=== PATIENT | male | born 1985 | race Caucasian/White ===

== ENCOUNTER 2021-01-31 12:20 | Emergency (ER) | payer OTHER, SELFPAY ==
[2021-01-31 12:36] VITALS: BP 132/64; PULSE 83; RESP 18; TEMP 37.5; O2SAT 98; BMI 22.2
== END 2021-01-31 13:00 | disposition left against medical advice (07) ==
PROVIDERS: Emergency Provider Emergency Medicine
DX: R05 Cough (principal); R50.9 Fever, unspecified; R06.02 Shortness of breath; Z20.822 Contact with and (suspected) exposure to COVID-19
CPT/HCPCS: 99282

== ENCOUNTER 2021-03-08 07:25 | Emergency (ER) | payer OTHER, SELFPAY ==
--- NOTE | 2021-03-08 | ECG_ITS ---
Test Reason : CHEST PAIN Blood Pressure : / mmHG Vent. Rate : 069 BPM Atrial Rate : 069 BPM P-R Int : 104 ms QRS Dur : 094 ms QT Int : 386 ms P-R-T Axes : 090 063 039 degrees QTc Int : 413 ms Normal sinus rhythm Normal EKG No previous ECGs available Referred By: Generic ED Physician Electronically Signed By:PIPO ZUNIGA
--- NOTE | ~2021-03-08 | XR_ITS ---
EXAMINATION: XR CHEST CLINICAL INFORMATION: Cough COMPARISON: Previous chest x-ray April 2018 TECHNIQUE: Frontal view of the chest was obtained. FINDINGS: No significant abnormality is noted involving the heart, lungs, mediastinum, bony thorax or soft tissues. XR/XR chest 1V IMPRESSION: Unremarkable examination.
[2021-03-08 07:57] VITALS: BP 110/80; PULSE 70; RESP 18; TEMP 37.1; O2SAT 98; BMI 24.2
--- NOTE | 2021-03-08 10:23 | ED.GENADULT ---
HPI - General Adult General Chief complaint: General Medical Stated complaint: chest pain, weakness, fever Time Seen by Provider: 03/08/21 09:19 Source: patient Mode of arrival: ambulatory History of Present Illness HPI narrative: 35-year-old male with no significant past medical history presenting to the ED complaining of fever T-max 102?, chills, dry cough, chest wall pain and SOB when coughing, and diarrhea x 2-3 days. Admits to similar symptoms in the past/yearly, usually has pneumonia. Denies cigarette smoking, recent travel, LE edema or calf pain. Denies exposure to COVID-19/sick contacts, abdominal pain, nausea/vomiting Related Data Previous Rx's Medication Instructions Recorded albuterol sulfate 5 mg INHALATION Q4H PRN #30 ea 03/08/21 benzonatate [Tessalon Perles] 100 mg PO TID PRN #14 cap 03/08/21 Allergies Allergy/AdvReac Type Severity Reaction Status Date / Time Penicillins [PENICILLINS] Allergy Intermediate SWELLING Unverified 07/23/20 17:04 penicillin V Allergy Unknown anaphylaxis Verified 11/23/18 00:00 Review of Systems Review of Systems: Constitutional: + Fever, + Chills, No Night Sweats, No Fatigue, No Malaise ENT/Mouth: No Nasal Congestion, No Sinus Pain, No sore throat, No Rhinorrhea Eyes: No Eye Pain, No Vision Changes Cardiovascular: + Chest Pain when coughing, + SOB when coughing, No Dyspnea on Exertion, No Orthopnea, No Edema Respiratory: + Cough, No Sputum, No Wheezing, No Smoke Exposure, No Dyspnea Gastrointestinal: No Nausea, No Vomiting, + Diarrhea, No Constipation, No Abdominal pain Genitourinary: No Dysuria, No Flank Pain, No Urinary Flow Changes, No Hesitancy Musculoskeletal: No joint pain, No Myalgias, No Joint Swelling Skin: No Skin Lesions, No rash Neuro: No Weakness, No Dizziness, No Headache Yes all other systems are reviewed and are negative [facility] Past Medical History Attestation statement: The following information was validated with the patient. Social History Social History Advance Directives: No Advance Directives Information Provided: No Physical Exam Vital Signs: Vital Signs: Last Vital Signs Temp 98.8 F 03/08/21 07:57 Pulse 70 03/08/21 07:57 Resp 18 03/08/21 07:57 BP 110/80 03/08/21 07:57 Pulse Ox 98 03/08/21 07:57 Body Mass Index 24.2 Const: General: cooperative, healthy appearing, comfortable, no acute distress, well developed, alert and awake Orientation/consciousness: patient oriented x3 Limitations: no limitations HENMT: Head: Yes normal to inspection Ears: hearing grossly normal bilaterally General nose exam: Normal external nose present Face and sinus: Yes normal facial exam Eyes: General: appearance normal, both eyes and all related structures EOM: EOMs intact bilaterally Neck: Neck: Yes normal visual inspection and Yes no meningeal signs Chest: Chest palpation & inspection: normal inspection of the chest Resp: Effort & Inspection: normal respiratory effort, no grunting and not labored Auscultation: clear to auscultation bilaterally, no rales, no rhonchi and no wheezes Cardio: Rate: regular rate Heart sounds: S1 normal heart sound present and S2 normal heart sound present GI: Inspection: Yes normal to inspection Skin: Rashes: no rashes Wounds: no wounds Neuro: General: patient oriented x3 and no meningeal signs Gait exam (Neuro): Normal gait present Extrem: General: Yes normal to inspection, Yes no pedal edema and Yes no calf tenderness Course Course Course Narrative: XR chest 1V IMPRESSION: Unremarkable examination COVID-19 positive >> results discussed with patient including worrisome signs and strict return precautions Medical Decision Making [facility] Narrative Medical decision making narrative: 35-year-old male with no significant past medical history presenting to the ED complaining of fever T-max 102?, chills, dry cough, chest wall pain and SOB when coughing, and diarrhea x 2-3 days. On exam VSS, NAD/well-appearing, lungs CTA, no LE edema or calf tenderness. Concern for COVID-19/viral syndrome. Rule out pneumonia. Unlikely ACS/PE or bacterial illness PERC rule negative Plan: CXR, COVID-19 testing Lab Data Labs: Lab Results 03/08/21 Range/Units 09:49 Coronavirus (PCR) POSITIVE A (Negative) Influenza Type A (PCR) NEGATIVE (Negative) Influenza Type B (PCR) NEGATIVE (Negative) RSV RNA Qual (PCR) NEGATIVE (Negative) Discharge Plan Discharge Clinical Impression: COVID-19 Patient Disposition: Home, Self-Care Instructions: COVID-19 (Coronavirus Disease 2019) (ED) Additional Instructions: Your chest x-ray was unremarkable today in the ED. Tessalon Perles for cough, take as needed. Albuterol inhaler is for wheezing/shortness of breath, use as needed Your COVID-19 results pending at this time, I will call you later with results. In the meantime self isolate and until you know the results. Youre COVID-19 positive Please continue to follow cold instructions and wash your hands frequently. You may take Tylenol as directed on the bottle for pain or fever. CDC Guidelines for home isolation: - Stay away from others - WEAR A MASK if you are sick AND STAY HOME - Cover your mouth and nose with a tissue when you cough or sneeze. Dispose of tissues in a lined trash can and wash your hands immediately with soap and water for at least 20 seconds. If soap and water are not available, clean hands with alcohol-based hand dietitian assistant that contains at least 60% alcohol. - Clean your hands often with soap and water for at least 20 seconds - Avoid touching your eyes, nose and mouth with unwashed hands - Do not share dishes, drinking glasses, cups, eating utensils, towels, or bedding with other people in your home. After using these items, wash them thoroughly with soap and water or put in the american sign language interpreter. - Clean high-touch surfaces in your isolation area ( sick room and bathroom) every day; let a caregiver clean and disinfect high-touch surfaces in other areas of the home. Clean the area or item with soap and water or another detergent if it is dirty. Then, use a household disinfectant. - Limit contact with pets and animals: If you must care for a pet, wash your hands before and after interacting with them) Prescriptions: New benzonatate [Tessalon Perles] 100 mg capsule 100 mg PO TID PRN (Reason: cough) Qty: 14 RF: 0 albuterol sulfate 2.5 mg/0.5 mL solution for nebulization 5 mg inhalation Q4H PRN (Reason: shortness of breath or wheezing) Qty: 30 RF: 0 Referrals: Physician,Unknown [Primary Care Provider] - 2 days Stand Alone Forms: Work/School Release
[2021-03-08 10:50] LABS: Influenza A PCR NEGATIVE (Negative); Influenza B PCR NEGATIVE (Negative); Resp Syncy Virus RNA Qual PCR NEGATIVE (Negative); SARS COV2 PCR INHOUSE POSITIVE (Negative)
== END 2021-03-08 11:37 | disposition home or self-care (01) ==
PROVIDERS: Physician Assistant; Emergency Provider Emergency Medicine
DX: U07.1 COVID-19 (principal); R07.9 Chest pain, unspecified; R50.9 Fever, unspecified
CPT/HCPCS: 0241U; 36415; 71045; 93005; 99283

== ENCOUNTER 2021-12-09 18:28 | Emergency (ER) | payer OTHER, SELFPAY ==
--- NOTE | ~2021-12-09 | XR_ITS ---
EXAMINATION: XR SOFT TISSUE NECK CLINICAL INDICATION: Foreign body sensation in the neck. COMPARISON: Chest radiograph dated from 03/08/2021. TECHNIQUE: 2 views of the soft tissue neck were obtained. FINDINGS: Soft tissue films of the neck demonstrate a normal larynx, pharynx and upper trachea. No soft tissue swelling or opaque foreign body is demonstrated. No acute cervical fractures or malalignment. Visualized lung apices are clear. XR/XR soft tissue neck IMPRESSION: No radiopaque foreign bodies.
[2021-12-09 18:32] VITALS: BP 132/75; PULSE 105; RESP 16; TEMP 37.2; O2SAT 99; BMI 24.2
--- NOTE | 2021-12-09 19:59 | ED_ITS ---
HPI - Skin/Abscess/Foreign Bdy General Chief complaint: Skin/Abscess/Foreign Body Stated complaint: Food stuck in throat? nothing can stay down Time Seen by Provider: 12/09/21 18:37 Source: patient Mode of arrival: EMS Limitations: no limitations History of Present Illness HPI narrative: This is a 36-year-old male past medical history significant for GERD and ?narrow esophagus ?presents to the emergency department with complaints of feeling like something was stuck in his throat around 3:00 p.m. patient tells me he was eating rice, beans and meat and he felt like it got stuck in his throat, he was unable to eat or drink anything for a while until about 2 hours ago, he tells me that while in our waiting room patient vomited, any puked up some of the food, causing immediate relief, patient tells me at this time he does not feel like there is anything in his throat. He tells me that this is happened to him in the past he is followed by GI, he takes omeprazole daily for his GERD. He denies chest pain, shortness of breath, nausea, vomiting, fevers, chills, abdominal pain. Patient tells me he is feeling completely better at this time. MD complaint: foreign body (Earlier patient was experiencing a foreign body sensation in his throat.) Onset (ago): hour(s) (5) Location: neck Severity: moderate Quality: foreign body sensation Pain Consistency: now resolved Relieving factors: none Context: none Associated symptoms: denies other symptoms Treatments prior to arrival: none Related Data Previous Rx's Medication Instructions Recorded albuterol sulfate 2.5 mg/0.5 mL 5 mg INHALATION Q4H PRN #30 ea 03/08/21 solution for nebulization benzonatate 100 mg capsule 100 mg PO TID PRN #14 cap 03/08/21 (Tessalon Perles) albuterol sulfate 90 mcg/actuation 2 puff INHALATION Q4-6H PRN #6.7 03/09/21 g aerosol inhaler Allergies Allergy/AdvReac Type Severity Reaction Status Date / Time Penicillins Allergy Intermediate SWELLING Unverified 07/23/20 17:04 [PENICILLINS] penicillin V Allergy Unknown anaphylaxis Verified 11/23/18 00:00 Review of Systems Verdana 4l Review of Systems: Verdana 4d Verdana 4d Constitutional : No Weight loss, No Fever, No Chills, No Fatigue, No Malaise ENT/Mouth : No sore throat, No Rhinorrhea Eyes: No Eye Pain, No Swelling, No Redness Cardiovascular : No Chest Pain, No SOB, No Dyspnea on Exertion, No OrthopneaOrthopnea, No Edema, No Palpitations Respiratory : No Cough, No Sputum, No Wheezing Gastrointestinal : No Nausea, No Vomiting, No Diarrhea, No Constipation, No abdominal Pain, No Hematochezia, No Melena Genitourinary : No Dysuria, No Urinary Frequency, No Hematuria, Musculoskeletal : No joint pain, No Myalgias, No Joint Swelling Skin : No Skin Lesions, No rash Neuro : No Weakness, No Numbness, No Dizziness, No Headache All other systems reviewed and are negative Yes all other systems are reviewed and are negative [facility] Past Medical History Attestation statement: The following information was validated with the patient. Source: old records reviewed and nursing notes reviewed Social History Social History Advance Directives: No Advance Directives Information Provided: Yes Physical Exam Verdana 4l Vital Signs: Verdana 4d Verdana 4d Vital Signs: Verdana 4d Verdana 4Bd Last Vital Signs Verdana 4d Replenishment Associate New 4d Replenishment Associate New 4d Temp 98.2 F 12/09/21 20:10 Replenishment Associate New 4d Pulse 108 H 12/09/21 20:10 Replenishment Associate New 4d Resp 16 12/09/21 20:10 BP 106/67 12/09/21 20:10 Pulse Ox 96 12/09/21 20:10 BMI result Body Mass Index 24.2 VSS Appearance: Alert.? Oriented X3.? No acute distress.? Patient speaking in full sentences, controlling secretions well, no acute distress. Head: Normocephalic, atraumatic, no step-offs or deformities Eyes: Pupils equal, round and reactive to light.? ENT: Pharynx normal.? No foreign body visualized in the posterior pharynx. Neck: Normal inspection.? Neck supple.? CVS: Normal heart rate and rhythm.? Pulses normal.? Respiratory: No respiratory distress.? Breath sounds normal.? Abdomen: Soft and nontender.? Skin: Skin warm and dry.? Normal skin color.? Normal skin turgor.? Extremities: No lower extremity edema.? No calf ttp. 5/5 strength to bilateral upper and lower extremities Back: No midline tenderness, no C-spine tenderness, full range of motion, no CVA tenderness bilaterally Neuro: Oriented X 3.? No motor deficit.? No sensory deficit. Course Reevaluation(s) Reevaluation #1: Patient's x-ray of neck and soft tissues normal. Patient's vital signs stable. Patient able to speak in full sentences, controlling secretions well. Patient no longer has foreign body sensation in throat. At this time I feel comfortable with discharge with GI follow-up in PCP follow-up. I have advised patient to return with new or worsening symptoms. Comfortable with plan Time: 20:28 MDM - Skin/Abscess/Foreign Bdy MDM Narrative Medical decision making narrative: 1999 36-year-old male presenting to the emergency department with a foreign body sensation in throat after eating rice, beans and me, at this time this sensation has resolved, patient told me he vomited multiple times in the waiting room. Patient tells me his GI doctor told him he has a narrow esophagus, currently on daily PPI. Physical examination benign Plan- CT neck and soft tissues. Medical Records Attestation: I reviewed the patient's medical records. Lab Data Attestation: I reviewed the patient's lab results. Imaging Data Xray neck: Attestation: I personally reviewed and interpreted this imaging study as follows: Radiologist's impression: FINDINGS: Soft tissue films of the neck demonstrate a normal larynx, pharynx and upper trachea. No soft tissue swelling or opaque foreign body is demonstrated. No acute cervical fractures or malalignment. Visualized lung apices are clear. XR/XR soft tissue neck IMPRESSION: No radiopaque foreign bodies. Critical Care Time Critical Care Time Critical Care Time: No Discharge Plan Discharge Clinical Impression: Foreign body sensation in throat Patient Disposition: Home, Self-Care Additional Instructions: Take your medications as prescribed. If you were prescribed antibiotics today, it is important that you take your medication to their entirety, do not skip any doses, do not finish them early. Follow-up with your primary care provider this week. Please follow up with Gastroenterology this week. Return to the emergency department with new or worsening symptoms. In case of emergency call 911 Prescriptions: No Action benzonatate [Tessalon Perles] 100 mg capsule 100 mg PO TID PRN (Reason: cough) Qty: 14 0RF albuterol sulfate 2.5 mg/0.5 mL solution for nebulization 5 mg inhalation Q4H PRN (Reason: shortness of breath or wheezing) Qty: 30 0RF albuterol sulfate 90 mcg/actuation HFA aerosol inhaler 2 puff inhalation Q4-6H PRN (Reason: shortness of breath or wheezing) Qty: 6 .7 0RF Referrals: lBaine Diehl MD [Physician] - 2 days Physician,Waleska J [Primary Care Provider] - 2 days (Follow-up with your primary care provider and Gastroenterology.) Stand Alone Forms: Work/School Release
[2021-12-09 20:10] VITALS: BP 106/67; PULSE 108; RESP 16; TEMP 36.8; O2SAT 96
--- NOTE | 2021-12-09 20:38 | PC.NURSE ---
pt a&ox3, vss, patient denies any difficulty breathing or swallowing, no pain.
== END 2021-12-09 20:43 | disposition home or self-care (01) ==
PROVIDERS: Emergency Provider Emergency Medicine Emergency Medical Services
DX: R09.89 Other specified symptoms and signs involving the circulatory and respiratory systems (principal); K21.9 Gastro-esophageal reflux disease without esophagitis
CPT/HCPCS: 70360; 99283; 99284

== ENCOUNTER 2022-01-15 08:31 | Emergency (ER) | payer OTHER, SELFPAY ==
[2022-01-15 08:56] VITALS: BP 122/77; PULSE 88; RESP 16; TEMP 36.9; O2SAT 99; BMI 23.5
[2022-01-15 09:38] LABS: COVID-19 Test Negative (Negative); IDNOW Serial# 16C4AD1C
[2022-01-15 09:39] LABS: Influenza A Positive (Negative); Influenza B2 Negative (Negative)
--- NOTE | 2022-01-15 09:43 | ED_ITS ---
HPI - URI/Sore Throat General Chief Complaint: Upper Respiratory Symptoms Stated Complaint: Flu symptoms Time Seen by Provider: 01/15/22 09:00 Source: patient Mode of arrival: ambulatory History of Present Illness HPI Narrative: 36-year-old male with past medical will history of asthma presenting to the ED complaining body aches, nausea, vomiting, slight cough since yesterday. Admits son tested positive for the flu on Monday. Also reports fever T-max 101 degrees last night, denies taking antipyretics. Denies ear pain, sore throat, CP, SOB, recent travel MD elicited complaint: fever Onset (ago): day(s) Related Data Previous Rx's Medication Instructions Recorded albuterol sulfate 2.5 mg/0.5 mL 5 mg INHALATION Q4H PRN #30 ea 03/08/21 solution for nebulization benzonatate 100 mg capsule 100 mg PO TID PRN #14 cap 03/08/21 (Tessalon Mary) albuterol sulfate 90 mcg/actuation 2 puff INHALATION Q4-6H PRN #6.7 g 03/09/21 aerosol inhaler ondansetron 4 mg disintegrating 4 mg PO Q8H PRN #10 tab 01/15/22 tablet oseltamivir 6 mg/mL oral 75 mg (12.5 mL) PO BID 5 Days #125 01/15/22 suspension (Tamiflu) ml Allergies Allergy/AdvReac Type Severity Reaction Status Date / Time Penicillins [PENICILLINS] Allergy Intermediate SWELLING Unverified 07/23/20 17:04 penicillin V Allergy Unknown anaphylaxis Verified 11/23/18 00:00 Review of Systems Review of Systems: Constitutional: + Fever, No Chills ENT/Mouth: No Ear Pain, No Nasal Congestion, No Sinus Pain, No Hoarseness, No sore throat, No Rhinorrhea, No Swallowing Difficulty Cardiovascular: No Chest Pain, No SOB Respiratory: + Cough, No Sputum, No Wheezing Gastrointestinal: + Nausea, + Vomiting, No Diarrhea, No Constipation, No Abdominal pain Genitourinary: No Dysuria, No Urinary Frequency, No Hematuria,No Flank Pain Musculoskeletal: No joint pain, + Myalgias, No Joint Swelling Skin: No Skin Lesions, No rash Neuro: No Weakness, No Numbness, No Paresthesias Yes all other systems are reviewed and are negative [facility] Past Medical History Attestation statement: The following information was validated with the patient. Medical History Asthma Social History Social History Alcohol intake: never Patient Tobacco Use Status: Never used Tobacco Advance Directives: No Advance Directives Information Provided: No Physical Exam Vital Signs: Vital Signs: Last Vital Signs Temp 98.4 F 01/15/22 08:56 Pulse 88 01/15/22 08:56 Resp 16 01/15/22 08:56 BP 122/77 01/15/22 08:56 Pulse Ox 99 01/15/22 08:56 BMI result Body Mass Index 23.5 Const: General: cooperative, healthy appearing and no acute distress Orientation/consciousness: patient oriented x3 Limitations: no limitations HENMT: Head: Yes normal to inspection Ears: hearing grossly normal bilaterally, external ears normal, TM's normal bilaterally and mastoids normal General nose exam: Normal external nose present Face and sinus: Yes normal facial exam Mouth: Normal oral and palatal mucosa present Throat: Yes posterior oropharynx normal, Yes tonsils normal, Yes uvula midline, No peritonsillar mass, No uvula laterally displaced and No uvular edema Eyes: General: appearance normal, both eyes and all related structures EOM: EOMs intact bilaterally Neck: Neck: Yes normal visual inspection, Yes no lymphadenopathy and Yes no meningeal signs Resp: Effort & Inspection: normal respiratory effort and no respiratory distress Auscultation: clear to auscultation bilaterally, no rales, no rhonc hi and no wheezes Cardio: Rate: regular rate Heart sounds: S1 normal heart sound present and S2 normal heart sound present Skin: Rashes: no rashes Wounds: no wounds Neuro: General: patient oriented x3 and no meningeal signs Gait exam (Neuro): Normal gait present Extrem: General: Yes normal to inspection Course Course Course Narrative: -influenza A positive. >> patient requesting Tamiflu in liquid form MDM - URI/Sore Throat MDM Narrative Medical decision making narrative: 36-year-old male with past medical will history of asthma presenting to the ED complaining body aches, nausea, vomiting, slight cough since yesterday. On exam vital signs stable, NAD/nontoxic appearing, lungs CTA, exam nonfocal. Concern for viral syndrome including influenza and COVID-19. The concern for pneumonia Plan: COVID-19 testing, rapid flu Differential Diagnosis Differential diagnosis: Likely upper respiratory infection, viral infection and influenza Medical Records Attestation: I reviewed the patient's medical records. Lab Data Attestation: I reviewed the patient's lab results. Labs: Lab Results 01/15/22 01/15/22 Range/Units 09:11 09:12 COVID-19 (AASHISH) Negative (Negative) COVID-19 Clin Com See Note Influenza Type A (TITUS) Positive A (Negative) Influenza Type B (TITUS) Negative (Negative) Influenza A & B Note See Note Discharge Plan Discharge Clinical Impression: Influenza A Patient Disposition: Home, Self-Care Instructions: Influenza (DC) Additional Instructions: You have the flu. Tamiflu is antiviral medication, please take as prescribed. Zofran as an antinausea medication, take as needed for nausea/vomiting. Make sure staying hydrated at home. Drink Gatorade, Pedialyte, water. Please practice proper hand hygiene and cover your mouth when coughing, you are infective. If you develop fevers unresolved Tylenol or Motrin, you are unable to eat or drink, developed shortness of breath or chest pain please return to the ED Prescriptions: New oseltamivir [Tamiflu] 6 mg/mL suspension for reconstitution 75 mg PO BID 5 Days Qty: 125 0RF ondansetron 4 mg tablet,disintegrating 4 mg PO Q8H PRN (Reason: nausea and vomiting) Qty: 10 0RF No Action benzonatate [Tessalon Perles] 100 mg capsule 100 mg PO TID PRN (Reason: cough) Qty: 14 0RF albuterol sulfate 2.5 mg/0.5 mL solution for nebulization 5 mg inhalation Q4H PRN (Reason: shortness of breath or wheezing) Qty: 30 0RF albuterol sulfate 90 mcg/actuation HFA aerosol inhaler 2 puff inhalation Q4-6H PRN (Reason: shortness of breath or wheezing) Qty: 6.7 0RF Referrals: Leola Pabon MD [Primary Care Provider] - 1 week (as needed) Stand Alone Forms: Work/School Release Interventions: ED Discharge Assessment Last Done: 01/15/22 09:55 Discharge Date/Time: 01/15/22 10:00
== END 2022-01-15 10:00 | disposition home or self-care (01) ==
PROVIDERS: Physician Assistant; Emergency Provider Emergency Medicine; PCP Internal Medicine
DX: J11.1 Influenza due to unidentified influenza virus with other respiratory manifestations (principal); Z20.822 Contact with and (suspected) exposure to COVID-19; J45.909 Unspecified asthma, uncomplicated
CPT/HCPCS: 87502; 87635; 99283

== ENCOUNTER → 2022-11-29 13:47 | Outpatient (BNVA) | payer SELFPAY | PROVIDERS: PCP Internal Medicine; Visit Provider Internal Medicine ==

== ENCOUNTER 2024-03-10 08:40 | Emergency (ER) | payer OTHER, SELFPAY ==
--- NOTE | ~2024-03-10 | XR_ITS ---
EXAMINATION: XR ANKLE, LEFT CLINICAL INFORMATION: Trauma COMPARISON: None available. TECHNIQUE: AP, lateral, and mortise views of the left ankle. FINDINGS: No fracture. Alignment is anatomic. No erosions. Joint spaces are maintained. Lateral soft tissue swelling. XR/XR ankle LT min 3V IMPRESSION: Lateral soft tissue swelling. No fracture or dislocation.
[2024-03-10 08:42] VITALS: BP 113/63; PULSE 84; RESP 16; TEMP 36.1; O2SAT 97; BMI 24.2
--- NOTE | 2024-03-10 09:06 | ED.LOWEXIN ---
HPI - Extremity Injury (Lower) General Chief Complaint: Extremity Injury, Lower Stated Complaint: Lt ankle pain Time Seen by Provider: 03/10/24 09:05 Source: patient and old records reviewed Mode of arrival: ambulatory Limitations: no limitations History of Present Illness HPI Narrative: 38 year old male with pmhx significant for asthma presents to the ED today for evaluation of left ankle pain that began last night after missing a step, causing him to rolling his ankle. He was able to catch himself and did not fall to the ground. Denies head strike or LOC. No AC. He has been icing the ankle with minimal relief. He reports taking Tylenol prior to arrival in ED. Reports he has been able to ambulate however bearing weight onto the ankle induces pain. Denies numbness, tingling, weakness of the LEs. Denies fever, chills. Denies other injury or trauma to the LE. Related Data Previous Rx's ?Medication ?Instructions ?Recorded albuterol sulfate 2.5 mg/0.5 mL 5 mg inhalation Q4H PRN shortness 03/08/21 solution for nebulization of breath or wheezing #30 ea benzonatate 100 mg capsule 100 mg PO TID PRN cough #14 caps 03/08/21 (Gopal Hernandez) albuterol sulfate 90 mcg/actuation 2 puff inhalation Q4-6H PRN 03/09/21 aerosol inhaler shortness of breath or wheezing #6.7 grams ondansetron 4 mg disintegrating 4 mg PO Q8H PRN nausea and 01/15/22 tablet vomiting #10 tabs oseltamivir 6 mg/mL oral 75 mg (12.5 mL) PO BID 5 days #125 01/15/22 suspension (Tamiflu) mL prednisone 20 mg tablet 20 mg PO DAILY 5 days #5 tabs 03/10/24 Allergies Allergy/AdvReac Type Severity Reaction Status Date / Time Penicillins [PENICILLINS] Allergy Intermediate SWELLING Verified 03/10/24 08:45 penicillin V Allergy Unknown anaphylaxis Verified 03/10/24 08:45 nut - unspecified Allergy Rash Verified 03/10/24 08:45 Review of Systems Review of Systems: Constitutional: No fever, chills, fatigue, night sweats, weight changes ENT/Mouth: No ear pain, hearing loss, nasal congestion, sinus pain, rhinorrhea, sore throat Eyes: No eye pain, swelling, redness, vision changes, discharge Cardio: No chest pain, palpitations, LYLE, orthopnea, peripheral edema Pulm: No SOB, cough, sputum, wheezing, dyspnea, hemoptysis GI: No nausea, vomiting, hematemesis, abdominal pain, diarrhea, constipation, hematochezia, melena : No irregular bleeding, dysuria, frequency, urgency, hesitancy, hematuria, flank pain, urinary flow changes, urinary incontinence or retention MSK: No back pain, neck pain, joint pain, myalgias Skin: No lesions, rashes, +ankle pain Neuro: No weakness, numbness, paresthesias, LOC, dizziness, headache Psych: No anxiety/panic, depression, SI/HI, AH/VH All other systems reviewed and are negative. [facility] Past Medical History Attestation statement: The following information was validated with the patient. Source: old records reviewed and nursing notes reviewed Medical History Asthma Social History Social History Alcohol intake: never Patient Tobacco Use Status: Never used Tobacco Advance Directives: No Advance Directives Information Provided: Yes Do you have a plan to hurt others: No Plan Physical Exam Vital Signs: Vital Signs: Last Vital Signs Temp 97.0 F 03/10/24 08:42 Pulse 84 03/10/24 08:42 Resp 16 03/10/24 08:42 BP 113/63 03/10/24 08:42 Pulse Ox 97 03/10/24 08:42 O2 Del Method Room Air 03/10/24 08:42 BMI result Body Mass Index 24.2 Vital signs stable Const: General: cooperative, healthy appearing, comfortable and no acute distress Orientation/consciousness: patient oriented x3 Limitations: no limitations HEENT: Head: Yes normal to inspection, Yes normocephalic and Yes atraumatic Eyes: General: appearance normal, both eyes and all related structures Conjunctivae: conjunctivae normal Sclerae: sclerae normal Pupils: Equal, round and reactive pupils present Neck: Neck: Yes normal visual inspection and Yes full ROM Resp: Effort & Inspection: normal respiratory effort Auscultation: clear to auscultation bilaterally Cardio: Rate: regular rate Rhythm: regular rhythm Skin: General skin exam: no rashes or lesions noted Neuro: General: patient oriented x3, gait normal and moves all extremities Cranial nerves: Yes Equal, round and reactive pupils present Extrem: Other: + L ankle with moderate amount of swelling noted over the lateral malleolus. No skin color changes or coolness. TTP over lateral malleolus without palpable deformity, warmth or fluctuance. No tenderness over the base of the fifth MTP. FROM intact to left ankle and all toes. Sensation intact. Ambulating with slight antalgic gait. 2+ dp/pt pulses. no calf tenderness. no pitting edema. General: Yes normal to inspection Course Course Course Narrative: [id number]-- radiographs of left ankle do not demonstrate acute fracture or dislocation. It does show lateral soft tissue swelling which is consistent with physical exam findings. Likely ankle sprain. Discussed results with patient. Educated on rice therapy. Will supply patient with Saul bandage and send a short course of prednisone to pharmacy. He is agreeable with this. Patient has remained stable throughout ED visit today. Discussed worrisome signs and symptoms and when to return to the ED. All questions answered at this time. Patient is agreeable with disposition and stable for discharge. Medical Decision Making Medical Decision Making [facility] Narrative: 38 year old male with pmhx significant for asthma presents to the ED today for evaluation of left ankle pain that began last night after missing a step, causing him to rolling his ankle. Vital signs stable. He is afebrile. He is nontoxic appearing and in NAD. On exam of the left ankle, there is moderate amount of swelling noted over the lateral malleolus. No skin color changes or coolness. TTP over lateral malleolus without palpable deformity, warmth or fluctuance. No tenderness over the base of the fifth MTP. FROM intact to left ankle and all toes. Sensation intact. Ambulating with slight antalgic gait. 2+ dp/pt pulses. no calf tenderness. no pitting edema. Differential diagnosis includes ankle sprain, ankle strain, fracture, dislocation, arthritis. Unlikely gout, pseudogout, septic arthritis, septic joint, compartment syndrome, threat to limb, neurovascular compromise. Plan for imaging and re-evaluation. Differential Diagnosis Differential Diagnoses: The differential diagnosis associated with the presentation includes as above. Admission/Observation not indicated Independent Interpretation I performed an independent interpretation of an: Plain X-Ray Interpretation: X-ray left ankle showing lateral soft tissue swelling, agree with radiologist's interpretation. Radiology Impression Discussion of test interpretation with radiology: I have reviewed the radiologist's reading. Radiologist Impression: EXAMINATION: XR ANKLE, LEFT CLINICAL INFORMATION: Trauma COMPARISON: None available. TECHNIQUE: AP, lateral, and mortise views of the left ankle. FINDINGS: No fracture. Alignment is anatomic. No erosions. Joint spaces are maintained. Lateral soft tissue swelling. XR/XR ankle LT min 3V IMPRESSION: Lateral soft tissue swelling. No fracture or dislocation. External Record Review External record reviewed: Inpatient record, Office record, Outpatient record, Prior outpatient labs, Prior outpatient radiology, Primary care record and Outside ED record Prescription Management I considered prescription management with: Pain Medication and Other (prednisone) Social Determinants Patient?s care significantly limited by Social Determinants of Health including: Other Social Determinant of Health Critical Care Time Critical Care Time Critical Care Time: No Discharge Plan Discharge Clinical Impression: Left ankle sprain Patient Disposition: Home, Self-Care Instructions: Ankle Sprain (ED), Sprain (ED), How to Use an Elastic Bandage (ED), R.I.C.E. Treatment (ED) Additional Instructions: Your xrays today do not demonstrate fracture or dislocation. You likely have an ankle sprain. You've been provided with an saul wrap to compress the ankle and help with swelling. Utilize RICE therapy - rest, ice, compress, and elevated the ankle. This will all help with swelling. You may ice for 20 minutes at a time, then switch to heat. Minimize bearing weight on the ankle for a few days to allow for healing. Prednisone is a steroid that has been sent to your pharmacy to help with inflammation. Take this for 5 days. You may also take nsaids such as ibuprofen which will help with inflammation. If symptoms persist, please follow up with your PCP. If you do not have one, a referral has been provided to you. Return with new or worsening symptoms. In the case of an emergency call 911. Prescriptions: New prednisone 20 mg tablet 20 mg PO DAILY 5 Days Qty: 5 0RF No Action benzonatate [Tessalon Perles] 100 mg capsule 100 mg PO TID PRN (Reason: cough) Qty: 14 0RF albuterol sulfate 2.5 mg/0.5 mL solution for nebulization 5 mg inhalation Q4H PRN (Reason: shortness of breath or wheezing) Qty: 30 0RF albuterol sulfate 90 mcg/actuation HFA aerosol inhaler 2 puff inhalation Q4-6H PRN (Reason: shortness of breath or wheezing) Qty: 6.7 0RF oseltamivir [Tamiflu] 6 mg/mL suspension for reconstitution 75 mg PO BID 5 Days Qty: 125 0RF ondansetron 4 mg tablet,disintegrating 4 mg PO Q8H PRN (Reason: nausea and vomiting) Qty: 10 0RF Referrals: [facility] [place] Family Medicine [Provider Group] [facility] [place] [facility] [Provider Group] [facility] [place] [facility] [Provider Group] Leola Pabon MD [Primary Care Provider] - Print Language: Kinyarwanda
[2024-03-10 09:58] VITALS: BP 116/72; PULSE 74; RESP 16; TEMP 36.8; O2SAT 95
== END 2024-03-10 10:01 | disposition home or self-care (01) ==
PROVIDERS: Emergency Provider Emergency Medicine; PCP Internal Medicine
DX: S93.402A Sprain of unspecified ligament of left ankle, initial encounter (principal); X50.1XXA Overexertion from prolonged static or awkward postures, initial encounter; Y93.9 Activity, unspecified; Y92.9 Unspecified place or not applicable; Y99.9 Unspecified external cause status
CPT/HCPCS: 73610; 99283

== ENCOUNTER → 2024-11-11 14:02 | Outpatient (BNVA) | payer SELFPAY | PROVIDERS: PCP Internal Medicine; Visit Provider Physician Assistant Medical | DX: Z02.79 Encounter for issue of other medical certificate (principal) ==